=== PATIENT | male | born 1980 | race Hispanic/Latino ===

== ENCOUNTER 2018-09-12 13:25 | Emergency (ER) | payer MEDICARE ==
[2018-09-12 13:54] LABS: BASOPHILS % (AUTO) 0.5 % (0.0-5.0); EOSINOPHILS % (AUTO) 1.8 % (0.0-8.0); HEMATOCRIT 48.1 % (42-54); LYMPHOCYTES % (AUTO) 11.2 % (21.0-51.0); MEAN CORPUSCULAR HEMOGLOBIN 27.1 pg (27.0-33.0); MEAN CORPUSCULAR HGB CONC 34.1 g/dL (32.0-36.0); MEAN CORPUSCULAR VOLUME 79.6 fL (79-99); MONOCYTES % (AUTO) 8.8 % (3.0-13.0); NEUTROPHILS % (AUTO) 77.7 % (40.0-77.0); NUCLEATED RED BLOOD CELLS 0.1 % (0.0-0.19); PLATELET COUNT (AUTO) 175 K/uL (130-400); RED BLOOD CELL COUNT(AUTO) 6.04 MIL/uL (4.50-6.20); RED CELL DISTRIBUTION WIDTH 14.6 % (11.0-15.5); WHITE BLOOD COUNT (AUTO) 11.7 K/uL (4.8-10.8)
[2018-09-12 14:02] LABS: POTASSIUM 3.6 mmol/L (3.5-5.1)
[2018-09-12 14:04] LABS: INR 1.06 (0.85-1.15); PARTIAL THROMBOPLASTIN TIME 31.7 SEC (26.3-35.5); PROTHROMBIN TIME 11.1 SEC (9.6-11.6)
[2018-09-12 14:07] LABS: ALBUMIN 4.3 g/dL (3.5-5.0); BILIRUBIN,TOTAL 0.6 mg/dL (0.2-1.0); TOTAL PROTEIN, SERUM 8.5 g/dL (6.0-8.3)
[2018-09-12] MEDS ORDERED: ACETAMINOPHEN 325 MG TAB ONE (14:44)
[2018-09-12 14:53] LABS: APPEARANCE,URINE Clear (CLEAR); BILIRUBIN,URINE Negative (NEGATIVE); COLOR,URINE Yellow (YELLOW); GLUCOSE, URINE (UA) Negative (NEGATIVE); KETONES,URINE 15 mg/dL (NEGATIVE); LEUKOCYTE ESTERASE ,URINE Negative (NEGATIVE); NITRATE,URINE Negative (NEGATIVE); OCCULT BLOOD,URINE Negative (NEGATIVE); PROTEIN,URINE Negative (NEGATIVE)
[2018-09-12] MEDS ORDERED: DiphenhydrAMINE HCL 50 MG/ML VIAL ONE (15:43)
[2018-09-12] MEDS ORDERED: KETOROLAC TROMETHAMINE 30MG/ML ONE (15:43)
[2018-09-12] MEDS ORDERED: SODIUM CHLORIDE 0.9% 1000ML 1,000 ML IV ONE (15:43)
[2018-09-12] MEDS ORDERED: AZITHROMYCIN 250 MG TABLET PO ONE (16:57)
== END 2018-09-12 17:03 | disposition home or self-care (01) ==
LOC: EDH 13:25
DX: J20.9 Acute bronchitis, unspecified (principal); M34.9 Systemic sclerosis, unspecified; Z90.49 Acquired absence of other specified parts of digestive tract; Z72.0 Tobacco use
CPT/HCPCS: 36415; 71045; 80053; 81003; 82550; 83605; 84484; 85025; 85610; 85730; 87040 ×2; 87804 ×2; 93005; 96374; 96375; 99284; J1200; J1885; J7030